=== PATIENT | female | born 1965 | race Caucasian/White ===

== ENCOUNTER 2020-09-03 09:04 | Emergency (ER) | payer OTHER, SELFPAY ==
[2020-09-03 09:14] VITALS: BP 141/76; PULSE 91; RESP 18; TEMP 37; O2SAT 98
--- NOTE | 2020-09-03 09:22 | ED.EAR ---
HPI - Ear Problem General Chief complaint: Ear Stated complaint: Water in ear Time Seen by Provider: 09/03/20 09:22 Source: patient Mode of arrival: ambulatory Limitations: no limitations History of Present Illness HPI Narrative: Gladys Martin is a 55 yo female with no PMH who comes to express care with c/o R water in ear. She states that started yesterday morning and she feels like she cannot hear well, has tried heat Related Data Allergies Allergy/AdvReac Type Severity Reaction Status Date / Time cefazolin [From Anc] Allergy Unknown Verified 09/03/20 09:38 morphine Allergy Itching Verified 09/03/20 09:38 Chlorine Allergy Rash Uncoded 09/03/20 09:41 vicryl Allergy Rash Uncoded 09/03/20 09:41 Review of Systems Review of Systems: Narrative: CONSTITUTIONAL: Denies fever, chills, sweats. EYES: Denies visual changes, redness, discharge. ENT: Denies rhinorrhea, congestion, sore throat, otalgia. Right ear feels like he has water in it CARDIOVASCULAR: Denies chest pain, palpitations, edema. RESPIRATORY: Denies dyspnea, wheezing, cough GASTROINTESTINAL: Denies abdominal pain, nausea, vomiting, diarrhea. GENITOURINARY: Denies dysuria, hematuria, abnormal discharge SKIN: Denies rash or itching. NEUROLOGIC: Denies numbness, or focal weakness. PSYCHIATRIC: Denies anxiety or depression. [facility] Past Medical History Medical History (Updated 09/03/20 @ 09:50 by Pamella Glover CNP) No acute medical problems Surgical History Surgical History History of abdominal surgery History of bladder suspension procedure Social History Social History (Updated 09/03/20 @ 09:43 by Pamella Glover CNP) Smoking packs per day: 0.5 Smoking cigarettes per day: 10.0 Smoking status: Current every day smoker Alcohol intake: current Gender identity (if verbalized by the patient): Female Comments At time of signature, I agree with nursing past medical, surgical, social and family history. There is no relevant family history pertinent to the presenting complaint. Patient informed of increased blood pressure and should follow-up with [employer] Exam Narrative: Exam Narrative: GENERAL: This is a well-nourished, well-developed patient, in mild distress. HEAD: normocephalic, atraumatic. EYES: Sclera clear/white. Vision is grossly intact. EARS: External ears normal, auditory canals small amounts of cerumen and without drainage, Fluid behind R TM. TMs normal without perforation. Hearing grossly intact. NOSE: External nose normal without nasal discharge, nares without redness, no rhinorrhea. THROAT: Mucous membranes moist, NECK: Neck supple, tender LN CARDIOVASCULAR: Regular rate and rhythm without murmurs, gallops, or rubs. RESPIRATORY: Clear to auscultation. Breath sounds equal bilaterally. No wheezes, rales, or rhonchi. GASTROINTESTINAL: Abdomen soft, SKIN: warm, intact with no suspicious lesions or rash, good texture and turgor. NEURO: awake, alert, and oriented to person, place and time. There were no obvious focal neurologic abnormalities. Steady gait EXTREMITIES: Normal range of motion. BACK: Nontender without deformity Course Course [facility] Started on Ciprodex Follow-up with PCP for blood pressure Vital Signs Vital signs: Vital Signs Temperature 98.6 F 09/03/20 09:14 Pulse Rate 91 09/03/20 09:14 Respiratory Rate 18 09/03/20 09:14 Blood Pressure 141/76 H 09/03/20 09:14 Pulse Oximetry 98 09/03/20 09:14 Temperature 98.6 F 09/03/20 09:14 Pulse Rate 91 09/03/20 09:14 Respiratory Rate 18 09/03/20 09:14 Blood Pressure 141/76 H 09/03/20 09:14 Pulse Oximetry 98 09/03/20 09:14 Medical Decision Making [facility] Narrative Medical decision making narrative: Patient complaining of right ear pain differential diagnosis include otitis media and otitis externa pharyngitis ad
== END 2020-09-03 10:08 | disposition home or self-care (01) ==
PROVIDERS: Emergency Provider Nurse Practitioner; PCP Internal Medicine
DX: H60.501 Unspecified acute noninfective otitis externa, right ear (principal); F17.210 Nicotine dependence, cigarettes, uncomplicated
CPT/HCPCS: 99213; G0463

== ENCOUNTER 2020-10-09 09:03 | Emergency (ER) | payer OTHER, SELFPAY ==
[2020-10-09 09:10] VITALS: BP 166/78; PULSE 99; RESP 18; TEMP 37.1; O2SAT 93
--- NOTE | 2020-10-09 09:19 | ED.URI ---
HPI - URI/Sore Throat General Chief Complaint: Upper Respiratory Infection Stated Complaint: Possible sinus infection Time Seen by Provider: 10/09/20 09:16 Source: patient, RN notes reviewed and old records reviewed Mode of arrival: ambulatory Limitations: no limitations History of Present Illness HPI Narrative: 55 year old female who presents to [facility] care with complaints of 3 day history of sinus congestion, facial pressure, frontal headache, sinus drainage with postnasal drainage with cough. Patient states that she has long history of sinus infections with symptoms similar to her past episodes of sinus infections. Patient denies any known fever, chills or sweats, denies any shortness of breath at rest or with exertion. Patient has long history of tobacco abuse. MD elicited complaint: sore throat, rhinorrhea, nasal congestion and sinus pain Pertinent past history: sinusitis and other (tobacco abuse) Onset (ago): day(s) (3) Consistency: progressively worsening Severity: similar to previous episodes Description of mucous: clear Able to tolerate fluids by mouth: Yes Associated symptoms: rhinorrhea, nasal congestion, sore throat and cough Treatments prior to arrival: other (Benadryl) Related Data Allergies Allergy/AdvReac Type Severity Reaction Status Date / Time cefazolin [From Ancef] Allergy Unknown Verified 10/09/20 09:18 morphine Allergy Itching Verified 10/09/20 09:18 Chlorine Allergy Rash Uncoded 09/03/20 09:41 vicryl Allergy Rash Uncoded 09/03/20 09:41 Review of Systems Review of Systems: Narrative: CONSTITUTIONAL: Denies fever, chills, or sweats. EYES: Denies visual changes, redness, or discharge. ENT: Positive rhinorrhea, congestion, sore throat, no otalgia. CARDIOVASCULAR: Denies chest pain, palpitations, or edema. RESPIRATORY: Positive cough denies dyspnea. GASTROINTESTINAL: Denies abdominal pain, nausea, vomiting, or diarrhea. GENITOURINARY: Denies dysuria or hematuria. SKIN: Denies rash or itching. MUSCULOSKELETAL: Denies back pain, joint pain, or myalgia. NEUROLOGIC: Positive frontal headache,denies any numbness, or weakness. PSYCHIATRIC: Denies anxiety or depression. All systems reviewed & are unremarkable except as noted in HPI and below PMFSH Past Medical History Medical History (Updated 10/09/20 @ 09:50 by Betina Aragon NP) Diverticulitis Surgical History Surgical History (Updated 10/09/20 @ 09:55 by Betina Aragon NP) History of abdominal surgery diverticulitis History of bladder suspension procedure Social History Social History Smoking packs per day: 0.5 Smoking cigarettes per day: 10.0 Smoking status: Current every day smoker Alcohol intake: current Gender identity (if verbalized by the patient): Female Comments At time of signature, agree with nursing past medical, surgical, social and family history. There is no relevant family history pertinent to the presenting complaint Exam Narrative: Exam Narrative: GENERAL: Well-appearing, well-nourished, and in no acute distress. HEAD: Normocephalic, atraumatic. EYES: PERRLA and EOMI. ENT: Nares red with clear rhinorrhea no epistaxis. Mucous membranes moist.TM's normal with dull light reflex, some cerumen noted to ears, Throat red with no lesions or exudates, no tonsil enlargement. NECK: Supple.no lymphadenopathy CHEST: Decreased to auscultation. No respiratory distress.SAO2 93% on room air. HEART: Regular rate and rhythm. No murmur heard. Normal peripheral pulses. ABDOMEN: Soft, nontender, nondistended, normal active bowel sounds. EXTREMITIES: Normal range of motion. No edema. SKIN: Warm, dry, no rash. NEURO: No focal deficits. Alert and oriented x3. Course Vital Signs Vital signs: Vital Signs Temperature 37.1 C 10/09/20 09:10 Pulse Rate 99 10/09/20 09:10 Respiratory Rate 18 10/09/20 09:10 Blood Pressure 166/78 H 10/09/20 09:10 Pulse Oximetry 93
== END 2020-10-09 09:44 | disposition home or self-care (01) ==
PROVIDERS: Emergency Provider Registered Nurse; PCP Internal Medicine
DX: J32.9 Chronic sinusitis, unspecified (principal); F17.210 Nicotine dependence, cigarettes, uncomplicated
CPT/HCPCS: 99213; G0463

== ENCOUNTER 2021-04-11 11:54 | Emergency (ER) | payer OTHER, SELFPAY ==
[2021-04-11 12:22] VITALS: BP 131/68; PULSE 88; RESP 18; TEMP 37.7; O2SAT 95
--- NOTE | 2021-04-11 13:30 | ED.URI ---
HPI - URI/Sore Throat General Chief Complaint: Upper Respiratory Infection Stated Complaint: Sinsu Congestion/Ear Problem Source: patient and RN notes reviewed Mode of arrival: ambulatory History of Present Illness HPI Narrative: 56-year-old female presented for complaint of another sinus infection she states she has the symptoms intermittently for the last 10 years. Endorses headache and pain to the right ear for about 1 day. She endorses a dry cough and a low-grade fever. She also states she slept over 14 hours last night. She has taken Tylenol, NyQuil, and gargled with peroxide. She has been vaccinated for Covid. She endorses one sick contact. Related Data Allergies Allergy/AdvReac Type Severity Reaction Status Date / Time cefazolin [From [facility]] Allergy Unknown Verified 10/09/20 09:18 morphine Allergy Itching Verified 10/09/20 09:18 Chlorine Allergy Rash Uncoded 09/03/20 09:41 vicryl Allergy Rash Uncoded 09/03/20 09:41 Review of Systems Review of Systems: All systems reviewed & are unremarkable except as noted in HPI and below PMFSH Past Medical History Medical History Diverticulitis Surgical History Surgical History History of abdominal surgery diverticulitis History of bladder suspension procedure Family History Family History (Updated 04/11/21 @ 13:38 by Kimberyl Avitia APRN) Other Family history non-contributory Social History Social History Smoking packs per day: 0.5 Smoking cigarettes per day: 10.0 Smoking status: Current every day smoker Alcohol intake: current Gender identity (if verbalized by the patient): Female Exam Narrative: GENERAL: Ill-appearing, in no acute distress. HEAD: Normocephalic, atraumatic. EYES: EOMI. No redness or drainage. Conjunctivae normal. ENT: Mucous membranes pink and moist. Nares clear. No rhinorrhea. TMs unable to visualize due to cerumen. NECK: Normal AROM. Supple. right anterior cervical node tenderness CHEST: No respiratory distress. Clear/diminished to auscultation. HEART: Regular rate and rhythm. No murmur appreciated. Normal peripheral pulses. ABDOMEN: Soft, nontender, nondistended, normal active bowel sounds. MUSCULOSKELETAL: No bony tenderness. EXTREMITIES: Normal range of motion. No edema. SKIN: Warm, dry, no rash. Capillary refill normal. Normal skin turgor. NEURO: No focal deficits. Alert and oriented x3. Gait steady. PSYCH: Normal affect. No signs of depression or anxiety. Course Course Level of Care: Express Care Visit Vital Signs Vital signs: Vital Signs Temperature 99.8 F H 04/11/21 12:22 Pulse Rate 88 04/11/21 12:22 Respiratory Rate 18 04/11/21 12:22 Blood Pressure 131/68 04/11/21 12:22 Pulse Oximetry 95 04/11/21 12:22 Temperature 99.8 F H 04/11/21 12:22 Pulse Rate 88 04/11/21 12:22 Respiratory Rate 18 04/11/21 12:22 Blood Pressure 131/68 04/11/21 12:22 Pulse Oximetry 95 04/11/21 12:22 MDM - URI/Sore Throat MDM Narrative Medical decision making narrative: PCR Covid test pending She will be discharged home with a prescription for zyrtec, flonase, and augmentin to take if symptoms persist beyond 10 days and the Covid test is negative, given her significant history of recurrent sinus infections. Differential Diagnosis Differential diagnosis: Likely upper respiratory infection, sinusitis, viral infection and influenza Discharge Plan Discharge Clinical Impression: Upper respiratory infection Patient Disposition: Home, Self-Care Condition: Stable Instructions: Antibiotic Form, Upper Respiratory Infection (ED), COVID-19 (Coronavirus Disease 2019) (ED) Additional Instructions: You were tested for COVID-19 today. While you wait for the results, please remain quarantined. Should your results be positi
[2021-04-12 22:11] LABS: SARS-CoV-2 RNA PCR Positive
== END 2021-04-11 13:57 | disposition home or self-care (01) ==
PROVIDERS: Emergency Provider Nurse Practitioner Family
DX: U07.1 COVID-19 (principal); F17.210 Nicotine dependence, cigarettes, uncomplicated
CPT/HCPCS: 99213; A9270; C9803; G0463; U0003; U0005